=== PATIENT | female | born 1975 | race African-American/Black ===

== ENCOUNTER 2016-05-31 11:11 | Emergency (ER) | payer OTHER ==
[2016-05-31 11:18] VITALS: BP 114/58; PULSE 68; TEMP 99.2; BMI 31.9
--- NOTE | 2016-05-31 13:20 | PDOC ---
History of Present Illness - General Chief Complaint: Injury Stated Complaint: FALL/INJURY Time Seen by Provider: 05/31/16 12:10 - History of Present Illness Initial Comments: 05/31/16 13:15 CHIEF COMPLAINT: knee/foot pain HISTORY OF PRESENT ILLNESS: 40 yo F with no PMH presents to [facility] with R knee and foot pain s/p fall. Patient states she was running up stairs in heels when she tripped and fell, but she caught herself with her hands and mostly broke the fall. She states that her pain is a 3 out of 10 on her foot, and on her knee she only feels a little pain when she walks. She is able to walk and bear weight on her R leg. She denies any loss of sensation, numbness, tingling. She denies any LOC or injury to any other part of the body. No recent travel or sick contacts. PAST MEDICAL HISTORY: Denies past medical history FAMILY HISTORY: Denies SOCIAL HISTORY:Occupation: teacher. Denies tobacco, alcohol, illicit drug use. SURGICAL HISTORY: Denies ALLERGIES: nickel REVIEW OF SYSTEMS General/Constitutional: Denies fever or chills. Denies weakness, weight change. HEENT: Denies change in vision. Denies ear pain or discharge. Denies sore throat. Cardiovascular: Denies chest pain or shortness of breath. Respiratory: Denies cough, wheezing, or hemoptysis. Gastrointestinal: Denies nausea, vomiting, diarrhea or constipation. Denies rectal bleeding. Genitourinary: Denies dysuria, frequency, or change in urination. Musculoskeletal: Knee and foot pain s/p fall. Skin and breasts: Denies rash or easy bruising. PHYSICAL EXAM General Appearance: Well-appearing, appropriately dressed. No apparent distress. HEENT: EOMI, PERRLA. No conjunctival pallor. No photophobia, scleral icterus. Neck: No midline tenderness to cervical spine. Supple. Trachea midline. No tenderness, rigidity, carotid bruit, stridor, lymphadenopathy, or thyromegaly. Respiratory/Chest: Lungs CTAB. Cardiovascular: RRR. S1, S2. Musculoskeletal/Extremities: No tenderness, erythema, ecchymosis, or swelling to R knee or foot. Full ROM to R knee and foot. Normal inspection. FROM of all other extremities, normal capillary refill. Pelvis Stable. No CVA tenderness. No tenderness to extremities, pedal edema, swelling, erythema or deformity. Integumentary: Appropriate color, dry, warm. No cyanosis, erythema, jaundice or rash Neurologic: residence manager II-XII intact. Fully oriented, alert. Appropriate mood/affect. Motor strength 5/5. No appreciable EOM palsy, facial droop or sensory deficit. Past History - Past Medical History Allergies/Adverse Reactions: Allergies Allergy/AdvReac Type Severity Reaction Status Date / Time nickel Allergy Verified 05/31/16 11:18 Home Medications: Ambulatory Orders Naproxen 250 mg PO BID #14 tablet 05/31/16 Other medical history: PATIENT DENIES MEDICAL HISTORY - Psycho/Social/Smoking Cessation Hx Anxiety: No Suicidal Ideation: No Smoking History: Never smoked Have you smoked in the past 12 months: No Hx Alcohol Use: No Drug/Substance Use Hx: No Substance Use Type: None *Physical Exam - Vital Signs Last Vital Signs Temp Pulse Resp BP Pulse Ox 99.2 F 68 18 114/58 98 05/31/16 11:15 05/31/16 11:15 05/31/16 11:15 05/31/16 11:15 05/31/16 11:15 Medical Decision Making - Medical Decision Making 05/31/16 13:20 40 yo F with no PMH presents to [facility] with knee and foot pain s/p fall. Clinical exam unremarkable, no tenderness or swelling on exam, x-ray not indicated at this time. -Naproxen 250 bid Advised patient to take medication as prescribed and f/u with orthopedics as needed. If you develop any new or worsening symptoms, please return to the ER. *DC/Admit/Observation/Transfer Diagnosis at time of Disposition: Foot pain, right Knee pain, right Qualifiers: Chronicity: acute Qualified Code(s): M25.561 - Pain in right knee - Discharge Dispostion Disposition: HOME Condition at time of disposition: Stable Admit: No - Prescriptions Prescriptions: Naproxen 250 mg PO BID #14 tablet - Referrals Referrals: Jesús Corona MD [Staff Physician] - - Patient Instructions Printed Discharge Instructions: DI for Knee Pain, DI for Foot Pain, How To Perform RICE (Rest, Ice, Compress, Elevate) Additional Instructions: Please take medication as directed. As discussed, if your symptoms persist past 3-5 days, please follow up with orthopedics. If you experience any increased pain, numbness or tingling or loss of sensation to your foot or leg, or you develop any new or worsening symptoms, please return to the ER.
== END 2016-05-31 13:49 | disposition home or self-care (01) ==
LOC: JERFT 11:11
DX: S89.81XA Other specified injuries of right lower leg, initial encounter (principal); W10.8XXA Fall (on) (from) other stairs and steps, initial encounter; Y93.89 Activity, other specified; Y92.29 Other specified public building as the place of occurrence of the external cause; Y99.0 Civilian activity done for income or pay
CPT/HCPCS: 99281-25

== ENCOUNTER 2021-01-25 09:24 | Emergency (ER) | payer OTHER ==
[2021-01-25 09:57] VITALS: BP 113/75; PULSE 65; TEMP 97.8; BMI 35.7
[2021-01-25] MEDS ORDERED: IBUPROFEN 600 MG TABLET (FP) PO ONE ×2 (11:32→11:36)
[2021-01-25] MEDS ORDERED: METHOCARBAMOL 500 MG TABLET PO ONE (11:33)
[2021-01-25] MEDS ORDERED: LIDOCAINE 5% TOPICAL PATCH TP ONE (11:33)
[2021-01-25] MEDS ORDERED: METHOCARBAMOL 500 MG TABLET ONE (11:35)
[2021-01-25] MEDS ORDERED: LIDOCAINE 5% TOPICAL PATCH ONE (11:35)
[2021-01-25] MEDS ORDERED: LIDOCAINE PATCH REMOVAL MC ONE (22:00)
== END 2021-01-25 11:51 | disposition home or self-care (01) ==
LOC: JERFT 09:24
DX: M79.602 Pain in left arm (principal)
CPT/HCPCS: 99283-25